=== PATIENT | male | born 1995 | race African-American/Black ===

== ENCOUNTER → 2021-11-04 | Outpatient (CLI) | payer OTHER ==
[~2021-11-04] MED LIST: TRAM50TA PO
== END ==
LOC: LAB 09:59
PROVIDERS: ATTEND Neurological Surgery
DX: Z01.812 Encounter for preprocedural laboratory examination (principal); Z20.822 Contact with and (suspected) exposure to COVID-19
CPT/HCPCS: U0003

== ENCOUNTER 2021-11-07 07:59 | Day surgery (SDC) | payer OTHER ==
[~2021-11-07] VITALS: Ht 182.9 cm; Wt 110.0 kg
[~2021-11-07 07:59] MED LIST changes: +BUPIVACAINE-EPI 0.5% 30 ML VIAL KIT. ONE; -TRAM50TA PO
[2021-11-07] MEDS ORDERED: IV RINGERS,LACTATED 1000ML 1,000 ML IV SCH ×2 (08:15→11:15)
[2021-11-07 08:24] VITALS: BP 146/62
[2021-11-07] MEDS ORDERED: LIDOCAINE 2% PF 5 ML VIAL. ONE (09:40)
[2021-11-07] MEDS ORDERED: PROPOFOL 10 MG/ML (20ML) VIAL. IV ONE ×2 (09:40→10:01)
[2021-11-07] MEDS ORDERED: fentaNYL PF VIAL 100 MCG/2 ML VIAL ONE ×3 (09:40→11:18)
[2021-11-07] MEDS ORDERED: ONDANSETRON PF 4 MG/2 ML VIAL. ONE (09:40)
[2021-11-07] MEDS ORDERED: DEXAMETHASONE SOD PHOS 4 MG/ML VIAL ONE (09:40)
[2021-11-07] MEDS ORDERED: MIDAZOLAM HCL/PF 2 MG/2 ML VIAL. ONE (09:40)
--- NOTE | 2021-11-07 10:43 | PDOC4 ---
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 DO Nov 07, 2021 10:43
[2021-11-07] MEDS ORDERED: TRAM50TA PO (10:48)
--- NOTE | 2021-11-07 10:50 | DISCH ---
DISCHARGE INSTRUCTIONS Condition on Discharge Condition on Discharge: Stable Activity After Discharge Activity Instructions for Disc: Resume previous activity, Activity as tolerated Driving Instructions after Dis: Do not drive today Weight Bearing Status after Di: Full weight bearing Wound Incision Care Wound/Incision Care: Ice to area for comfort, Keep wound elevated, Change dressing Other wound/incision instructi: May change dressings postoperative day #3 Follow-Up Follow up with: Shasha in 10 to 14 days MARTINEZ HOLLINGSWORTH Jr. DO Nov 07, 2021 10:50
[2021-11-07] MEDS ORDERED: SEVOFLURANE 61 TO 120 MINUTES. IH ONE (10:52)
[2021-11-07] MEDS ORDERED: HYDROmorphone 2 MG/ML INJ. IVP PRN (11:15)
[2021-11-07] MEDS ORDERED: MORPHINE SULFATE 2 MG/ML INJ. IVP PRN (11:15)
[2021-11-07] MEDS ORDERED: PROCHLORPERAZINE 10 MG/2 ML VIAL. IVP PRN (11:15)
[2021-11-07] MEDS ORDERED: fentaNYL PF VIAL 100 MCG/2 ML VIAL IVP PRN (11:15)
[2021-11-07] MEDS: fentaNYL PF VIAL 100 MCG/2 ML VIAL IVP PRN ×2 (11:20→11:35)
[2021-11-07] MEDS ORDERED: traMADol 50 MG TABLET PO ONE (11:30)
[2021-11-07 11:55] VITALS: BP 106/65
== END 2021-11-07 12:12 | disposition home or self-care (01) ==
LOC: SURG 07:59
PROVIDERS: ATTEND Orthopaedic Surgery
DX: M79.4 Hypertrophy of (infrapatellar) fat pad (principal); E88.89 Other specified metabolic disorders; M25.561 Pain in right knee; Z87.891 Personal history of nicotine dependence; Z79.899 Other long term (current) drug therapy; Z98.890 Other specified postprocedural states
CPT/HCPCS: 29875; A4930; J0690; J1100; J2405; J2704; J3010; A4223; J2250

== ENCOUNTER → 2022-01-06 | Outpatient (CLI) | payer OTHER ==
[~2022-01-06] MED LIST changes: +ASPI325T8 PO; -BUPIVACAINE-EPI 0.5% 30 ML VIAL KIT. ONE; +OXYC5TAB88 PO; +TRAM50TA PO
== END ==
LOC: LAB 10:07
PROVIDERS: ATTEND Orthopaedic Surgery
DX: Z01.812 Encounter for preprocedural laboratory examination (principal); Z20.822 Contact with and (suspected) exposure to COVID-19; E88.89 Other specified metabolic disorders; M25.562 Pain in left knee
CPT/HCPCS: U0003

== ENCOUNTER 2022-01-09 07:00 | Day surgery (SDC) | payer OTHER ==
[~2022-01-09] VITALS: Ht 182.9 cm; Wt 110.0 kg
[~2022-01-09 07:00] MED LIST changes: -ASPI325T8 PO; +HYDROmorphone 2 MG/ML INJ. IVP PRN; +IV RINGERS,LACTATED 1000ML 1,000 ML IV SCH; +MORPHINE SULFATE 2 MG/ML INJ. IVP PRN; -OXYC5TAB88 PO; +PROCHLORPERAZINE 10 MG/2 ML VIAL. IVP PRN; +fentaNYL PF VIAL 100 MCG/2 ML VIAL IVP PRN
[2022-01-09] MEDS ORDERED: BUPIVACAINE-EPI 0.25%-1:200000 MPF 30 ML VIAL. ONE (07:11)
[2022-01-09 07:22] VITALS: BP 127/73
[2022-01-09] MEDS ORDERED: PROPOFOL 10 MG/ML (20ML) VIAL. IV ONE (07:56)
[2022-01-09] MEDS ORDERED: DEXAMETHASONE SOD PHOS 4 MG/ML VIAL ONE (07:56)
[2022-01-09] MEDS ORDERED: LIDOCAINE 2% PF 5 ML VIAL. ONE (07:56)
[2022-01-09] MEDS ORDERED: ONDANSETRON PF 4 MG/2 ML VIAL. ONE (07:56)
[2022-01-09] MEDS ORDERED: fentaNYL PF VIAL 100 MCG/2 ML VIAL ONE (07:57)
[2022-01-09] MEDS ORDERED: MIDAZOLAM HCL/PF 2 MG/2 ML VIAL. ONE (08:12)
[2022-01-09] MEDS ORDERED: ASPI325T8 PO (08:43)
[2022-01-09] MEDS ORDERED: OXYC5TAB88 PO (08:43)
--- NOTE | 2022-01-09 08:48 | DISCH ---
DISCHARGE INSTRUCTIONS Condition on Discharge Condition on Discharge: Stable Activity After Discharge Activity Instructions for Disc: Resume previous activity, Activity as tolerated Driving Instructions after Dis: Do not drive today Weight Bearing Status after Di: Full weight bearing, As tolerated Diet after Discharge Diet after Discharge: Regular Wound Incision Care Wound/Incision Care: Ice to area for comfort, Keep wound elevated, Change dress ing Contacting the DR. after DC Call your doctor for: Fever greater than 100 Treatment/Equipment after DC Adaptive Equipment Issued: None ELAINE GOMEZ Jan 09, 2022 08:48
[2022-01-09] MEDS ORDERED: HYDROmorphone 2 MG/ML INJ. ONE (09:06)
[2022-01-09] MEDS ORDERED: KETOROLAC 30 MG/ML VIAL. ONE (09:08)
--- NOTE | 2022-01-09 09:18 | PDOC4 ---
OPERATIVE NOTE Date: Date: Jan 09, 2022 Pre-Op Diagnosis: 1. 26-year-old male right knee pain 2. Fat pad impingement right knee Post-Op Diagnosis: Same Procedure Performed: 1. Diagnostic arthroscopy right knee 2. Hoffa's fat pad excision right knee Surgeon: Shasha Anesthesia Type: General Blood Loss: 20 cc Specimans Obtained: None Complications: Patient tolerated the procedure well without any apparent complications. Operative Note: See dictation ELAINE GOMEZ Jan 09, 2022 09:18
--- NOTE | 2022-01-09 09:22 | OP ---
DATE OF SURGERY: 01/09/2022 PREOPERATIVE DIAGNOSES: Hoffa's fat pad left knee, possible chondral lesion patellofemoral joint. POSTOPERATIVE DIAGNOSIS: Hoffa's fat pad, left knee. PROCEDURE: Left knee arthroscopy with synovectomy, arthroscopic removal of fat pad. SURGEON: Evan Pulliam Jr, DO ANESTHESIA: General. COMPLICATIONS: None. ESTIMATED BLOOD LOSS: 20 mL. DESCRIPTION OF PROCEDURE: The patient was taken to the operative suite, given a general anesthetic. Left lower extremity was placed in the knee valencia, prepped and draped in sterile fashion. Inferomedial and inferolateral portals were established. Knee was insufflated with saline. Visualization of the patella revealed this to be tracking appropriately. Chondral surface was completely intact. Femoral sulcus was intact. No abnormalities were noted of significance at this point. Therefore, the fat pad was noted to be very large and impinging toward the medial compartment. This was removed in its entirety. No loose bodies were noted within the medial or lateral gutters. At this point, scope was then taken into the medial compartment. Upon entering the compartment, the meniscus was probed and noted to be stable. Everything in the medial compartment was completely intact. No chondral lesions, no abnormalities whatsoever. ACL and the PCL were probed and noted to be intact and stable. The lateral compartment was also noted to be completely intact and stable without any tears of the meniscus and chondral surfaces were intact. This was then thoroughly irrigated, reinspected, no new problems were noted. Therefore, all instruments were removed. The wounds were reapproximated in an interrupted fashion using 3-0 nylon. Sterile dressing was applied after local was placed in the portal sites. The patient was then taken from the operative bed to the postoperative bed, taken to the PACU in stable condition. SINGH DR: Johnathan TID: [id number]
[2022-01-09] MEDS ORDERED: oxyCODONE/APAP 5/325 1 TAB TABLET PO ONE (10:15)
[2022-01-09 10:28] VITALS: BP 119/70
== END 2022-01-09 11:26 | disposition home or self-care (01) ==
LOC: SURG 07:00
PROVIDERS: ATTEND Orthopaedic Surgery
DX: E88.89 Other specified metabolic disorders (principal); M25.562 Pain in left knee; Z79.82 Long term (current) use of aspirin; Z79.899 Other long term (current) drug therapy; Z98.890 Other specified postprocedural states; Z87.891 Personal history of nicotine dependence
CPT/HCPCS: 29875; A4930; A6223; A6253; A6450; J0690; J1100; J1170; J1885; J2250; J2405; J2704; J3010; J3490